=== PATIENT | male | born 1995 ===

== ENCOUNTER 2022-07-18 08:22 | Outpatient (CLI) | payer OTHER, SELFPAY ==
[2022-07-18 14:23] LABS: Albumin* 4.3 g/dL (3.3-5.0); Chloride* 103 mmol/L (96-114)
[2022-07-18 14:24] LABS: Potassium* 4.2 mmol/L (3.6-5.1); Sodium* 139 mmol/L (135-149)
[2022-07-18 14:26] LABS: Aspartate Amino Transferase* 25 U/L (12-35); Blood Urea Nitrogen* 19 mg/dL (5-24); Carbon Dioxide* 30 mmol/L (20-32); Cholesterol* 185 mg/dL (90-199); Creatinine* 1.1 mg/dL (0.5-1.5); Estimated Glomerular Filt Rate 95 ml/min
[2022-07-18 14:27] LABS: Alanine Aminotransferase* 25 U/L (4-50); Alkaline Phosphatase* 66 U/L (40-150); Calcium* 9.2 mg/dL (8.4-10.6); Glucose* 102 mg/dL (60-115); HDL Cholesterol* 41 mg/dL (>=40); LDL Cholesterol Calculated 112 mg/dL (<100); Triglycerides* 160 mg/dL (40-149)
== END 2022-07-18 08:23 | disposition home or self-care (01) ==
PROVIDERS: PCP Family Medicine; Visit Provider Family Medicine
DX: Z00.00 Encounter for general adult medical examination without abnormal findings (principal); Z13.6 Encounter for screening for cardiovascular disorders
CPT/HCPCS: 80053; 80061